=== PATIENT | female | born 1965 | race African-American/Black ===

== ENCOUNTER 2017-05-19 11:31 | Emergency (ER) | payer OTHER, MEDICAID ==
[~2017-05-19] VITALS: Ht 170.2 cm; Wt 77.1 kg
[2017-05-19] MEDS ORDERED: TDAP DIPH,PERTUSS,TET VAC/PF 0.5 ML DISP.SYRIN IM ONE ×2 (12:00→12:12)
== END 2017-05-19 12:12 | disposition home or self-care (01) ==
LOC: ER 11:33
DX: S61.252A Open bite of right middle finger without damage to nail, initial encounter (principal); L03.011 Cellulitis of right finger; W54.0XXA Bitten by dog, initial encounter; Y93.89 Activity, other specified; Y92.9 Unspecified place or not applicable; Y99.9 Unspecified external cause status; Z90.49 Acquired absence of other specified parts of digestive tract
CPT/HCPCS: 90715; A4663